=== PATIENT | male | born 1985 | race Caucasian/White ===

== ENCOUNTER 2020-10-07 04:23 | Emergency (ER) | payer BC ==
[2020-10-07 05:30] LABS: RED BLOOD COUNT 5.43 M/UL (4.20-5.50); WHITE BLOOD COUNT 11.2 K/UL (4.5-11.0)
[2020-10-07 05:45] LABS: BUN/CREATININE RATIO 13 (0-10)
[2020-10-07] MEDS ORDERED: TORADOL 10 MG T10 MG PO (07:08)
[2020-10-07] MEDS ORDERED: ZOFRAN ODT 4 MG4 MG GT (07:08)
== END 2020-10-07 07:50 | disposition home or self-care (01) ==
LOC: ER1 04:23
PROVIDERS: Family Medicine
DX: K82.8 Other specified diseases of gallbladder (principal)
CPT/HCPCS: 80053; 83690; 85025; 99284; Q9967

== ENCOUNTER → 2021-04-01 | Day surgery (SDC) | payer BC ==
[~2021-04-01] MED LIST: IBUPROFEN200 MG PO; TORADOL 10 MG T10 MG PO; TYLENOL325 M1 PO; ZOFRAN ODT 4 MG4 MG GT
== END | disposition home or self-care (01) ==
LOC: OR 03-18 07:30
DX: K80.70 Calculus of gallbladder and bile duct without cholecystitis without obstruction (principal); K21.9 Gastro-esophageal reflux disease without esophagitis; F17.210 Nicotine dependence, cigarettes, uncomplicated; Z20.822 Contact with and (suspected) exposure to COVID-19
CPT/HCPCS: 36415; 80076; J0690; J1100; J1170; J1885; J2001; J2250; J2405; J2704; J2710; J3010; J7030; J7040; J7120

== ENCOUNTER 2021-07-07 19:06 | Emergency (ER) | payer BC ==
[2021-07-07 20:04] LABS: HEMOGLOBIN 16.8 gm/dl (14.0-17.5); RED BLOOD COUNT 5.42 M/UL (4.20-5.50); WHITE BLOOD COUNT 9.8 K/UL (4.5-11.0)
[2021-07-07 20:27] LABS: BUN/CREATININE RATIO 13 (0-10)
[2021-07-07] MEDS ORDERED: BUSPIRONE HCL5 MG PO (21:32)
== END 2021-07-07 21:45 | disposition home or self-care (01) ==
LOC: ER1 19:06
PROVIDERS: Physician Assistant
DX: I49.1 Atrial premature depolarization (principal); F41.9 Anxiety disorder, unspecified; F17.200 Nicotine dependence, unspecified, uncomplicated
CPT/HCPCS: 71045; 80053; 82550; 82553; 83735; 84439; 84443; 84484; 85025; 93005; 99285